=== PATIENT | male | born 1960 | race Hispanic/Latino ===

== ENCOUNTER 2018-08-28 09:54 | Emergency (ER) | payer OTHER ==
[~2018-08-28 09:54] MED LIST: LISINOPRIL PO
[2018-08-28] MEDS ORDERED: KETOROLAC TROMETHAMINE 60 MG/2 ML VIAL ONE (10:27)
== END 2018-08-28 10:49 | disposition home or self-care (01) ==
LOC: EDH 09:54
DX: M62.838 Other muscle spasm (principal); I10 Essential (primary) hypertension; K21.9 Gastro-esophageal reflux disease without esophagitis; Z98.890 Other specified postprocedural states
CPT/HCPCS: 72040; 96372; 99283; J1885

== ENCOUNTER 2021-07-11 03:38 | Emergency (ER) | payer OTHER ==
[~2021-07-11] VITALS: Ht 172.7 cm; Wt 99.8 kg
[2021-07-11 03:56] LABS: HEMATOCRIT 44.7 % (42-54); MEAN CORPUSCULAR HEMOGLOBIN 30.7 pg (27.0-33.0); MEAN CORPUSCULAR HGB CONC 34.5 g/dL (32.0-36.0); MEAN CORPUSCULAR VOLUME 89.2 fL (79-99); PLATELET COUNT (AUTO) 279 K/uL (130-400); RED BLOOD CELL COUNT(AUTO) 5.01 MIL/uL (4.50-6.20); RED CELL DISTRIBUTION WIDTH 12.3 % (11.0-15.5)
[2021-07-11] MEDS ORDERED: LOSARTAN 50 MG TABLET ONE (03:58)
[2021-07-11] MEDS: LOSARTAN 50 MG TABLET PO SCH ×2 (04:00→06:37)
[2021-07-11 04:07] LABS: POTASSIUM 3.7 mmol/L (3.5-5.1)
[2021-07-11 04:12] LABS: ALBUMIN 3.9 g/dL (3.5-5.0); BILIRUBIN,TOTAL 0.5 mg/dL (0.2-1.0); TOTAL PROTEIN, SERUM 7.9 g/dL (6.0-8.3)
[2021-07-11 05:33] LABS: BASOPHILS % (MANUAL) 1 % (0-2); EOSINOPHILS % (MANUAL) 2 % (1-6); LYMPHOCYTES % (MANUAL) 50 % (22-44); MONOCYTES % (MANUAL) 8 % (2-9); REACTIVE LYMPHOCYTES 2 % (0-0); SEGMENTED NEUTROPHILS % 37 % (40-70)
[2021-07-11 05:34] LABS: MAN.DIFF COMMENT-IMPRESSION MANUAL DIFFERENTIAL; PLATELET MORPHOLOGY COMMENT ADEQUATE
[2021-07-11 06:25] LABS: APPEARANCE,URINE Clear (CLEAR); BILIRUBIN,URINE Negative (NEGATIVE); COLOR,URINE Yellow (YELLOW); GLUCOSE, URINE (UA) Negative (NEGATIVE); KETONES,URINE Negative (NEGATIVE); LEUKOCYTE ESTERASE ,URINE Negative (NEGATIVE); NITRATE,URINE Negative (NEGATIVE); OCCULT BLOOD,URINE Negative (NEGATIVE); PH,URINE 5.5 (5.0-8.0); PROTEIN,URINE Negative (NEGATIVE); UROBILINOGEN,URINE 0.2 mg/dL (0.2-1.0)
[2021-07-11 07:28] VITALS: BP 131/69
== END 2021-07-11 08:15 | disposition home or self-care (01) ==
LOC: EDH 03:38
DX: F41.9 Anxiety disorder, unspecified (principal); I10 Essential (primary) hypertension; K21.9 Gastro-esophageal reflux disease without esophagitis; G47.30 Sleep apnea, unspecified; Z79.899 Other long term (current) drug therapy
CPT/HCPCS: 36415; 71045; 80053; 81003; 84484; 85025; 93005

== ENCOUNTER 2024-02-21 16:57 | Emergency (ER) | payer OTHER ==
[~2024-02-21] VITALS: Ht 175.3 cm; Wt 98.4 kg
[2024-02-21 17:20] VITALS: BP 173/108; PULSE 98; RESP 17; O2SAT 98
[2024-02-21 17:24] LABS: BASOPHILS # (AUTO) 0.03 K/uL (0.00-0.20); BASOPHILS % (AUTO) 0.3 % (0.0-5.0); IMMATURE GRANULOCYTE ABSOLUTE 0.05 K/uL (0-1); MEAN CORPUSCULAR HEMOGLOBIN 30.3 pg (27.0-33.0); MEAN CORPUSCULAR HGB CONC 35.6 g/dL (32.0-36.0); MEAN CORPUSCULAR VOLUME 85.2 fL (79-99); MONOCYTES % (AUTO) 9.6 % (3.0-13.0); NEUTROPHILS % (AUTO) 68.6 % (40.0-77.0); PLATELET COUNT (AUTO) 373 K/uL (130-400); RED BLOOD CELL COUNT(AUTO) 5.28 MIL/uL (4.50-6.20); RED CELL DISTRIBUTION WIDTH 12.1 % (11.0-15.5); WHITE BLOOD COUNT (AUTO) 10.2 K/uL (4.8-10.8)
[2024-02-21] MEDS: 0.9%NACL 1000ML 1,000 ML IV ONE (17:32)
[2024-02-21] MEDS: HYDROMORPHONE 1 MG INJ IVP ONE (17:33)
[2024-02-21] MEDS: PANTOPRAZOLE 40 MG/VIAL IVP ONE (17:33)
[2024-02-21] MEDS: ONDANSETRON 4MG INJ IVP ONE (17:33)
[2024-02-21 17:37] LABS: CREATININE 1.1 mg/dL (0.5-1.3)
[2024-02-21 17:46] LABS: ALBUMIN 3.6 g/dL (3.5-5.0); BILIRUBIN,TOTAL 0.5 mg/dL (0.2-1.0); TOTAL PROTEIN, SERUM 8.6 g/dL (6.0-8.3)
[2024-02-21 19:11] LABS: APPEARANCE,URINE CLEAR (CLEAR); BILIRUBIN,URINE NEGATIVE (NEGATIVE); COLOR,URINE LIGHT-YELLOW (YELLOW); GLUCOSE, URINE (UA) NEGATIVE (NEGATIVE); KETONES,URINE NEGATIVE (NEGATIVE); LEUKOCYTE ESTERASE ,URINE NEGATIVE Leu/uL (NEGATIVE); NITRATE,URINE NEGATIVE (NEGATIVE); OCCULT BLOOD,URINE NEGATIVE (NEGATIVE); PH,URINE 5.5 (5.0-8.0); PROTEIN,URINE NEGATIVE (NEGATIVE); UROBILINOGEN,URINE 0.2 mg/dL (0.2-1.0)
[2024-02-21 19:12] LABS: ADD UA MICROSCOPIC YES
[2024-02-21 19:13] LABS: MUCUS,URINE RARE LPF (None Seen); RBC,URINE 0-1 /HPF (0-1); WBC,URINE 0-1 /HPF (0-1)
[2024-02-21] MEDS ORDERED: ONDA-243 PO (19:26)
[2024-02-22] MEDS ORDERED: SUCR1TAB28 PO (12:37)
[2024-02-22] MEDS ORDERED: HYOS0.124 SL (12:37)
[2024-02-22] MEDS ORDERED: FAMO-136 PO (12:37)
[2024-02-24] MEDS ORDERED: CARV12.511 PO (00:40)
[2024-02-24] MEDS ORDERED: PANT40TA54 PO (00:40)
== END 2024-02-21 19:56 | disposition home or self-care (01) ==
LOC: EDH 16:57
DX: K80.70 Calculus of gallbladder and bile duct without cholecystitis without obstruction (principal); R11.2 Nausea with vomiting, unspecified; K21.9 Gastro-esophageal reflux disease without esophagitis; I10 Essential (primary) hypertension; Z98.890 Other specified postprocedural states; Z79.899 Other long term (current) drug therapy
CPT/HCPCS: 99285; 96374; 76705; 96361; 96375; 71045; 82550; 84484; 80053; 83690; 85025; 81001; 36415; 93005; J1170; J7030; J2405; C9113

== ENCOUNTER 2024-02-22 08:40 | Emergency (ER) | payer OTHER ==
[~2024-02-22] VITALS: Ht 175.3 cm; Wt 98.0 kg
[~2024-02-22 08:40] MED LIST changes: +ONDA-243 PO
[2024-02-22] MEDS: ONDANSETRON 4MG INJ IVP ONE (09:16)
[2024-02-22] MEDS: 0.9% NACL 500ML IV.SOLN 500 ML IV SCH (09:16)
[2024-02-22] MEDS: KETOROLAC 30MG VIAL (30MG/ML) IVP ONE (09:16)
[2024-02-22 09:19] LABS: BASOPHILS # (AUTO) 0.05 K/uL (0.00-0.20); BASOPHILS % (AUTO) 0.5 % (0.0-5.0); EOSINOPHILS # (AUTO) 0.25 K/uL (0.00-0.70); EOSINOPHILS % (AUTO) 2.3 % (0.0-8.0); HEMATOCRIT 44.1 % (42-54); IMMATURE GRANULOCYTE ABSOLUTE 0.04 K/uL (0-1); LYMPHOCYTES # (AUTO) 1.9 K/uL (1.0-4.8); LYMPHOCYTES % (AUTO) 17.3 % (21.0-51.0); MEAN CORPUSCULAR HEMOGLOBIN 30.6 pg (27.0-33.0); MEAN CORPUSCULAR HGB CONC 35.4 g/dL (32.0-36.0); MEAN CORPUSCULAR VOLUME 86.5 fL (79-99); MONOCYTES % (AUTO) 9.5 % (3.0-13.0); NEUTROPHILS # (AUTO) 7.5 K/uL (1.8-7.7); PLATELET COUNT (AUTO) 359 K/uL (130-400); RED CELL DISTRIBUTION WIDTH 12.1 % (11.0-15.5); WHITE BLOOD COUNT (AUTO) 10.7 K/uL (4.8-10.8)
[2024-02-22 09:27] LABS: CREATININE 1.1 mg/dL (0.5-1.3); POTASSIUM 4.1 mmol/L (3.5-5.1)
[2024-02-22] MEDS ORDERED: 0.9%NACL 1000ML 1,000 ML IV ONE (09:30)
[2024-02-22 09:32] LABS: ALBUMIN 3.4 g/dL (3.5-5.0); BILIRUBIN,TOTAL 0.7 mg/dL (0.2-1.0); TOTAL PROTEIN, SERUM 8.2 g/dL (6.0-8.3)
[2024-02-22] MEDS: PANTOPRAZOLE 40 MG/VIAL IVP ONE (10:17)
[2024-02-22] MEDS: MAG/ALUM/SIMETH 30 ML UDCUP PO ONE (10:17)
[2024-02-22] MEDS: SUCRALFATE 1 GM/10 ML PO SCH (10:19)
[2024-02-22 12:26] VITALS: BP 126/79; PULSE 68; RESP 16; O2SAT 97
[2024-02-22] MEDS ORDERED: SUCR1TAB28 PO (12:37)
[2024-02-22] MEDS ORDERED: HYOS0.124 SL (12:37)
[2024-02-22] MEDS ORDERED: FAMO-136 PO (12:37)
[2024-02-24] MEDS ORDERED: CARV12.511 PO (00:40)
[2024-02-24] MEDS ORDERED: PANT40TA54 PO (00:40)
== END 2024-02-22 12:56 | disposition home or self-care (01) ==
LOC: EDH 08:40
DX: K80.20 Calculus of gallbladder without cholecystitis without obstruction (principal); R73.9 Hyperglycemia, unspecified; I10 Essential (primary) hypertension; K21.9 Gastro-esophageal reflux disease without esophagitis; Z79.899 Other long term (current) drug therapy; Z98.890 Other specified postprocedural states
CPT/HCPCS: 99284; 96374; 96375; 84484; 80053; 83690; 85025; 36415; 93005; J7040; J2405; J1885; C9113

== ENCOUNTER 2024-06-08 23:41 | Emergency (ER) | payer OTHER ==
[~2024-06-08] VITALS: Ht 175.3 cm; Wt 97.5 kg
[~2024-06-08 23:41] MED LIST changes: +CARV12.511 PO; -LISINOPRIL PO; -ONDA-243 PO; +PANT40TA54 PO
[2024-06-08 23:42] VITALS: TEMP 97.7
[2024-06-09 00:02] VITALS: BP 156/87; PULSE 75; RESP 17; O2SAT 98
[2024-06-09] MEDS: ketOROlac 15MG/ML VIAL (15MG/ML) IV ONE (00:20)
[2024-06-09] MEDS: PROCHLORPERAZINE 10MG/2ML INJ IV ONE (00:20)
[2024-06-09] MEDS: DiphenhydrAMINE HCL 50 MG/ML VIAL IVP ONE (00:20)
[2024-06-09] MEDS ORDERED: KETO10TA2 PO (00:45)
== END 2024-06-09 01:05 | disposition home or self-care (01) ==
LOC: EDH 23:41
DX: G43.909 Migraine, unspecified, not intractable, without status migrainosus (principal); I10 Essential (primary) hypertension; K21.9 Gastro-esophageal reflux disease without esophagitis; F32.A Depression, unspecified; F41.9 Anxiety disorder, unspecified; Z79.899 Other long term (current) drug therapy; Z90.49 Acquired absence of other specified parts of digestive tract
CPT/HCPCS: 99284; 96374; 96375; J1200; J0780; J1885